=== PATIENT | male | born 1970 | race Two or more races ===

== ENCOUNTER 2020-11-26 13:46 | Inpatient (IN) | payer BC ==
[2020-11-26 17:20] VITALS: BMI 27.0
[2020-11-26] MEDS ORDERED: NICOTINE POLACRILEX 2 MG GUM BUC PRN (21:36)
[2020-11-26] MEDS ORDERED: MENTHOL/PHENOL 1 EACH UD MM PRN (21:36)
[2020-11-26] MEDS ORDERED: ACETAMINOPHEN 325 MG TABLET (FP) PO PRN (21:36)
[2020-11-26] MEDS ORDERED: MAG HYDROX/AL HYDROX/SIMETH 30 ML UNIT-DOSE CUP PO PRN (21:36)
[2020-11-26] MEDS ORDERED: MAGNESIUM HYDROX 2400MG/30ML ORAL SUSPENSION 30 ML CUP PO PRN (21:36)
[2020-11-26] MEDS ORDERED: ONDANSETRON *ODT* 4 MG TABLET SL PRN (21:36)
[2020-11-26] MEDS ORDERED: MAGNESIUM CITRATE 300 ML BOTTLE PO PRN (21:36)
[2020-11-26] MEDS ORDERED: BISMUTH SUBSALICYLATE 524 MG/30 ML PO PRN (21:36)
[2020-11-26] MEDS ORDERED: P-EPHED 60MG/TRIPROLIDI 2.5MG TABLET PO PRN (21:38)
[2020-11-26] MEDS ORDERED: BENZOCAINE 20 % GEL TUBE MM PRN (21:38)
[2020-11-26] MEDS ORDERED: cloNIDine HCL 0.1 MG TABLET PO PRN (21:39)
[2020-11-26] MEDS: THIAMINE HCL 100 MG TABLET (FP) PO SCH (22:33)
[2020-11-26] MEDS: MELATONIN 5 MG TABLETS PO SCH (22:33)
[2020-11-27] MEDS ORDERED: METHADONE HCL 10 MG TABLET (FOR DETOX USE ONLY) PO ONE (12:16)
[2020-11-27] MEDS: METHOCARBAMOL 500 MG TABLET PO PRN ×2 (13:57→22:17)
[2020-11-27] MEDS: PRENATAL VITAMINS W/ FOLIC ACID TABLET (FP) PO SCH (13:57)
[2020-11-27] MEDS: IBUPROFEN 400 MG TABLET (FP) PO PRN (17:52)
[2020-11-27] MEDS: hydrOXYzine PAMOATE 25 MG CAPSULE (FP) PO PRN (17:53)
[2020-11-27] MEDS: MELATONIN 5 MG TABLETS PO SCH (22:15)
[2020-11-27] MEDS: THIAMINE HCL 100 MG TABLET (FP) PO SCH (22:15)
[2020-11-27] MEDS: cloNIDine HCL 0.1 MG TABLET PO PRN (22:17)
[2020-11-28] MEDS ORDERED: METHADONE HCL 10 MG TABLET (FOR DETOX USE ONLY) ONE (09:07)
[2020-11-28] MEDS ORDERED: METHADONE HCL 5 MG TABLET (FOR DETOX USE ONLY) ONE (09:08)
[2020-11-28] MEDS ORDERED: METHADONE (DETOX) 20 MG, METHADONE (DETOX) 5 MG PO ONE (10:00)
[2020-11-28] MEDS: METHOCARBAMOL 500 MG TABLET PO PRN ×2 (10:03→22:26)
[2020-11-28] MEDS: PRENATAL VITAMINS W/ FOLIC ACID TABLET (FP) PO SCH (10:04)
[2020-11-28] MEDS: IBUPROFEN 400 MG TABLET (FP) PO PRN (10:06)
[2020-11-28] MEDS: THIAMINE HCL 100 MG TABLET (FP) PO SCH (22:25)
[2020-11-28] MEDS: MELATONIN 5 MG TABLETS PO SCH (22:25)
[2020-11-28] MEDS: hydrOXYzine PAMOATE 25 MG CAPSULE (FP) PO PRN (22:26)
[2020-11-28] MEDS: cloNIDine HCL 0.1 MG TABLET PO PRN (22:26)
[2020-11-29] MEDS: METHOCARBAMOL 500 MG TABLET PO PRN ×2 (06:21→13:50)
[2020-11-29] MEDS: ACETAMINOPHEN 325 MG TABLET (FP) PO PRN ×2 (06:21→13:50)
[2020-11-29] MEDS ORDERED: METHADONE HCL 10 MG TABLET (FOR DETOX USE ONLY) PO ONE (10:00)
[2020-11-29] MEDS ORDERED: NICOTINE 21 MG/24 HOURS TOPICAL PATCH TD SCH (10:00)
[2020-11-29] MEDS: PRENATAL VITAMINS W/ FOLIC ACID TABLET (FP) PO SCH (10:27)
[2020-11-29] MEDS: hydrOXYzine PAMOATE 25 MG CAPSULE (FP) PO PRN (10:27)
[2020-11-29] MEDS: IBUPROFEN 400 MG TABLET (FP) PO PRN (10:29)
[2020-11-29 18:53] VITALS: BP 124/86; PULSE 60; TEMP 96.4
[2020-11-29 19:28] LABS: HEMATOCRIT 41.3 % (35.4-49); HEMOGLOBIN 13.9 GM/dL (11.7-16.9); MCH 29.9 pg (25.7-33.7); MCHC 33.6 g/dl (32.0-35.9); MEAN CELL VOLUME 89.1 fl (80-96); MEAN PLT VOLUME 8.2 fl (7.5-11.1); PLATELET COUNT 345 10^3/uL (134-434); RBC 4.64 M/mm3 (4.00-5.60); RDW 13.2 % (11.9-15.9); WHITE BLOOD COUNT 9.5 K/mm3 (4.0-10.0)
[2020-11-29 19:43] LABS: ALBUMIN 4.1 g/dl (3.4-5.0); BLOOD UREA NITROGEN 17.4 mg/dL (7-18); CALCIUM 9.2 mg/dL (8.5-10.1)
[2020-11-29 19:48] LABS: BILIRUBIN,TOTAL 0.6 mg/dL (0.2-1); TOT PROT 7.6 g/dl (6.4-8.2)
[2020-11-29 21:35] LABS: HIV INTERPRETATION NEGATIVE (NEGATIVE)
[2020-11-30] MEDS ORDERED: METHADONE (DETOX) 10 MG, METHADONE (DETOX) 5 MG PO ONE (10:00)
[2020-12-01] MEDS ORDERED: METHADONE HCL 10 MG TABLET (FOR DETOX USE ONLY) PO ONE (10:00)
[2020-12-02] MEDS ORDERED: METHADONE HCL 5 MG TABLET (FOR DETOX USE ONLY) PO ONE (06:00)
== END 2020-11-29 19:40 | disposition left against medical advice (07) | DRG 770 ==
LOC: YASAS 13:46 → Y3N 11-27 12:26
PROVIDERS: ADMIT Allergy & Immunology; ATTEND Allergy & Immunology
PROC: HZ2ZZZZ Detoxification Services for Substance Abuse Treatment (ICD-10-PCS; principal; 2020-11-27)
DX: F11.23 Opioid dependence with withdrawal (principal); F11.220 Opioid dependence with intoxication, uncomplicated; F14.20 Cocaine dependence, uncomplicated; Z91.013 Allergy to seafood
CPT/HCPCS: 36415; 80053; 85027; 86780; 87389; C9803; J0735; U0003; U0005